=== PATIENT | male | born 1965 | race Caucasian/White ===

== ENCOUNTER 2021-12-19 07:52 | Day surgery (SDC) | payer OTHER ==
[~2021-12-19] VITALS: Ht 180.3 cm; Wt 81.9 kg
[~2021-12-19 07:52] MED LIST: Antivert25 MG PO; DIPH50 PO; ESOM20 PO; LAMO100 PO; MONT5TCH PO; NASACORT10.8 ML; OMEP40CA12 PO; PSEU120ER PO
[2021-12-19] MEDS ORDERED: ZYRTEC10 M2 (08:23)
== END 2021-12-19 11:11 | disposition home or self-care (01) ==
LOC: ORSCSDS 07:52
PROVIDERS: Student in an Organized Health Care Education/Training Program
PROC: 0DBK8ZX Excision of Ascending Colon, Via Natural or Artificial Opening Endoscopic, Diagnostic (ICD-10-PCS; principal; 2021-12-19 09:00)
PROC: 0DB58ZX Excision of Esophagus, Via Natural or Artificial Opening Endoscopic, Diagnostic (ICD-10-PCS; principal; 2021-12-19 09:00)
PROC: 0DBM8ZX Excision of Descending Colon, Via Natural or Artificial Opening Endoscopic, Diagnostic (ICD-10-PCS; principal; 2021-12-19 09:00)
PROC: 0DBL8ZX Excision of Transverse Colon, Via Natural or Artificial Opening Endoscopic, Diagnostic (ICD-10-PCS; principal; 2021-12-19 09:00)
DX: K21.9 Gastro-esophageal reflux disease without esophagitis (principal); Z12.11 Encounter for screening for malignant neoplasm of colon; K22.70 Barrett's esophagus without dysplasia; D12.2 Benign neoplasm of ascending colon; D12.3 Benign neoplasm of transverse colon; K44.9 Diaphragmatic hernia without obstruction or gangrene; K64.8 Other hemorrhoids
CPT/HCPCS: 88305; J2250; J2704

== ENCOUNTER → 2023-01-01 | Outpatient (CLI) | payer OTHER ==
[~2023-01-01] MED LIST changes: +ZYRTEC10 M2
[2023-01-01 18:56] LABS: BASOPHILS ABSOLUTE AUTO 0.05 K/mm3 (0.00-0.23); BASOPHILS PERCENT AUTO 1 % (0-2); EOSINOPHILS ABSOLUTE AUTO 0.11 K/mm3 (0.00-0.68); EOSINOPHILS PERCENT AUTO 2 % (0-6); Hematocrit 42.6 % (37.0-53.0); Hemoglobin 14.1 g/dL (13.5-17.5); IMMATURE GRAN ABSOLUTE AUTO 0.02 K/mm3 (0.00-0.10); IMMATURE GRAN PERCENT AUTO 0 % (0-1); LYMPHOCYTES ABSOLUTE AUTO 2.65 K/mm3 (0.84-5.20); LYMPHOCYTES PERCENT AUTO 42 % (21-46); MONOCYTES ABSOLUTE AUTO 0.75 K/mm3 (0.16-1.47); MONOCYTES PERCENT AUTO 12 % (4-13); Mean Corpuscular HGB 30.2 pg (26.0-34.0); Mean Corpuscular HGB Conc 33.1 g/dL (31.5-36.5); Mean Corpuscular Volume 91 fL (80-100); Mean Platelet Volume 9.7 fL (9.1-12.4); NEUTROPHILS ABSOLUTE AUTO 2.73 K/mm3 (1.96-9.15); NEUTROPHILS PERCENT AUTO 43 % (41-73); Platelet Count 225 K/mm3 (150-400); RDW Coefficient Variation 12.7 % (11.7-14.2); RDW Standard Deviation 41.6 fL (35.1-46.3); Red Blood Cell Count 4.67 M/mm3 (4.30-5.90); White Blood Cell Count 6.31 K/mm3 (4.00-11.30)
[2023-01-01 19:13] LABS: Albumin, Blood 3.9 g/dL (3.4-5.0); Albumin/Globulin Ratio 1.1 (0.8-1.8); Bilirubin, Total 0.5 mg/dL (0.1-1.0); Bun/Creatinine Ratio 8.6 (12.0-20.0); Calcium, Blood 8.6 mg/dL (8.5-10.1); Creatinine, Blood 1.28 mg/dL (0.60-1.20); Globulin, Blood 3.5 g/dL (2.2-4.0); Magnesium, Blood 2.1 mg/dL (1.6-2.4); Potassium, Blood 4.2 mmol/L (3.5-5.5); Thyroid Stimulating Hormone 1.933 uIU/mL (0.360-4.800); Total Protein, Blood 7.4 g/dL (6.4-8.2)
== END | disposition home or self-care (01) ==
LOC: LAB SHORT 18:51
PROVIDERS: Physician Assistant
DX: R53.83 Other fatigue (principal)
CPT/HCPCS: 80053; 83735; 84443; 85025

== ENCOUNTER 2023-02-18 09:57 | Inpatient (IN) | payer OTHER ==
[~2023-02-18] VITALS: Ht 182.9 cm; Wt 86.2 kg
[2023-02-18 10:38] LABS: BASOPHILS ABSOLUTE AUTO 0.05 K/mm3 (0.00-0.23); BASOPHILS PERCENT AUTO 1 % (0-2); EOSINOPHILS ABSOLUTE AUTO 0.04 K/mm3 (0.00-0.68); EOSINOPHILS PERCENT AUTO 1 % (0-6); Hematocrit 43.9 % (37.0-53.0); Hemoglobin 14.6 g/dL (13.5-17.5); IMMATURE GRAN ABSOLUTE AUTO 0.01 K/mm3 (0.00-0.10); IMMATURE GRAN PERCENT AUTO 0 % (0-1); LYMPHOCYTES ABSOLUTE AUTO 1.68 K/mm3 (0.84-5.20); LYMPHOCYTES PERCENT AUTO 34 % (21-46); MONOCYTES ABSOLUTE AUTO 0.39 K/mm3 (0.16-1.47); MONOCYTES PERCENT AUTO 8 % (4-13); Mean Corpuscular HGB Conc 33.3 g/dL (31.5-36.5); Mean Corpuscular Volume 90 fL (80-100); Mean Platelet Volume 9.8 fL (9.1-12.4); NEUTROPHILS ABSOLUTE AUTO 2.79 K/mm3 (1.96-9.15); NEUTROPHILS PERCENT AUTO 56 % (41-73); Platelet Count 234 K/mm3 (150-400); RDW Coefficient Variation 12.1 % (11.7-14.2); RDW Standard Deviation 39.9 fL (35.1-46.3); Red Blood Cell Count 4.86 M/mm3 (4.30-5.90); White Blood Cell Count 4.96 K/mm3 (4.00-11.30)
[2023-02-18] MEDS ORDERED: BENADRYL25 MG PO (10:47)
[2023-02-18 10:54] LABS: Albumin, Blood 3.9 g/dL (3.4-5.0); Albumin/Globulin Ratio 1.1 (0.8-1.8); Bilirubin, Total 0.3 mg/dL (0.1-1.0); Bun/Creatinine Ratio 9.3 (12.0-20.0); Calcium, Blood 8.5 mg/dL (8.5-10.1); Creatinine, Blood 1.07 mg/dL (0.60-1.20); Globulin, Blood 3.5 g/dL (2.2-4.0); Potassium, Blood 4.1 mmol/L (3.5-5.5); Total Protein, Blood 7.4 g/dL (6.4-8.2)
[2023-02-18 15:43] VITALS: BP 175/104
[2023-02-18 16:00] VITALS: BP 160/90
[2023-02-18] MEDS ORDERED: ESOM20 PO (16:29)
--- NOTE | 2023-02-18 17:42 | NUR ---
BEDSIDE SWALLOW EVAL DONE- PT WAS ABLE TO DRINK COLD WATER WITH A STRAW WITH NO EVIDENCE OF DYSPHASIA, WELL EATING PUDDING, APPLESAUCE AMD ARMINDA CRACKERS IN PUDDING. ADVANCED DIET PER MD ORDER.
--- NOTE | 2023-02-18 18:29 | NUR ---
ASSISTED PT TO THE RESTROOM, PT DECLINED USE OF GAITBELT DESPITE STAFF SAFETY CONCERNS. AMBULATED WITH PT FROM BED TO RESTROOM, STAND BY ASSIST. PT IS WOBBLY ON HIS FEET. 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 USE OF CALL LIGHT TO CALL STAFF FOR ASSISTANCE WAS ADVISED TO PT.
--- NOTE | 2023-02-18 19:32 | NUR ---
SHIFT SUMMARY- PT ADMITTED THROUGH THE ED FOR NEW ONSET CVA. PT HAS ONLY GROSS MOTOR CONTROL IN THE RIGHT ARM. BEDSIDE SWALLOW EVAL WAS PERFORMED BY THIS RN, AND THE PT PASSED ABLE TO CONSUME THIN LIQUIDS AND MIXED CONSISTENCIES WITHOUT DIFFICULTY. PT HAS DENIED ANY PAIN AT THIS TIME. HE HAS DECLINED TO USE THE GAIT BELT WHEN AMBULATING TO THE BATHROOM. IT WAS EXPLAINED TO HIM THAT THE GAIT BELT IS FOR STAFF TO USE IN AN EMERGENCY. THIS WAS ALL PASSED ON TO NIGHT RN IN BEDSIDE REPORT.
[2023-02-18 19:34] VITALS: BP 155/92
[2023-02-19 04:07] VITALS: BP 160/108
[2023-02-19 05:41] LABS: Hemoglobin 14.8 g/dL (13.5-17.5); Mean Corpuscular HGB 30.3 pg (26.0-34.0); Mean Corpuscular HGB Conc 33.6 g/dL (31.5-36.5); Mean Corpuscular Volume 90 fL (80-100); Mean Platelet Volume 10.1 fL (9.1-12.4); Platelet Count 236 K/mm3 (150-400); RDW Coefficient Variation 12.4 % (11.7-14.2); RDW Standard Deviation 40.8 fL (35.1-46.3); Red Blood Cell Count 4.88 M/mm3 (4.30-5.90); White Blood Cell Count 6.73 K/mm3 (4.00-11.30)
[2023-02-19 06:12] LABS: Anion Gap 6 mmol/L (6-16); Blood Urea Nitrogen 8 mg/dL (8-24); Bun/Creatinine Ratio 7.8 (12.0-20.0); CHOL/HDL RATIO 3.9; CO2, Blood 25 mmol/L (21-32); Calcium, Blood 8.9 mg/dL (8.5-10.1); Chloride, Blood 107 mmol/L (98-108); Cholesterol 176 mg/dL (50-200); Creatinine, Blood 1.02 mg/dL (0.60-1.20); Glomerular Filtration Rate 87 (60-); Glucose, Blood 98 mg/dL (70-99); HDL Cholesterol 45 mg/dL (>39); LDL/HDL RATIO 2.3; Low Density Lipoprotein Chol 104 mg/dL (0-110); Potassium, Blood 3.8 mmol/L (3.5-5.5); Sodium, Blood 138 mmol/L (136-145); Triglycerides 133 mg/dL (30-160); Very Low Density Lipoprot Chol 26 mg/dL (6-32)
--- NOTE | 2023-02-19 06:24 | NUR ---
SHIFT SUMMARY PT SITTING UP IN BED DURING BEDSIDE REPORT- ASSISTED PT TO BR- PT HAS RIGHT SIDED DEFICET - PT REPORTED FEELING LIGHT HEADED SINCE SYMPTOMS BEGAN YESTERDAY- EDUCATED PT OF IMPORTANCE OF NOT MOVING FAST TO GET OUT OF BED AND NOT GETTING UP WITHOUT ASSISTANCE-PT CALLED APPROPRIATELY T/O NIGHT- EXPRESSED WANTING TO DISCUSS WITH OTHER TESTING SUCH MS AND SAMANTHA GEHRIG'S DISEASE- WILL PASS ON WANTING TO DISCUSS WITH - PT SLEPT MOST OF THE NIGHT- NO SWALLOW ISSUES- NO CHANGES FROM BEGINNING OF SHIFT NEURO ASSESSMENT- BED LOW POSITION, CALL LIGHT WITHIN REACH
[2023-02-19 09:53] VITALS: BP 144/86
[2023-02-19 14:42] VITALS: BP 139/101
--- NOTE | 2023-02-19 17:12 | NUR ---
SHIFT SUMMARY IS A&O X 4. VSS. NO ACUTE CHANGES THIS SHIFT. APPETITE IS GOOD. PT UP TO RESTROOM W/STDBY ASSIST. SLIGHT R ARM WEAKNESS. AT BEDSIDE MAJORITY OF SHIFT, HAS NOW GONE HOME. PT IS PLEASANT & COOPERATIVE WITH ALL CARE. PHYS THERAPY ATEMPTED TO WORK WITH PT TODAY BUT HAD CONTINUED UNEXPECTED BARRIERS TO GAIN ACCESS TO PT. (SEE PHYS THERAPY NOTES). PHYS THERAPY WILL TRY AGAIN TOMORROW. CALL LIGHT IS WITHIN REACH, PT IS ABLE TO MAKE NEEDS KNOWN. BED IN LOW POSITION.
[2023-02-19 19:52] VITALS: BP 148/92
--- NOTE | 2023-02-20 06:59 | NUR ---
Shift Summary Pt states he is feeling stronger in his affected (R) side but still has some weakness. Pupil reflexes brisk and equal on both sides. No facial droop. No c/o pain or nausea. VSS. AOx4, independent in room.
[2023-02-20 08:41] VITALS: BP 149/95
--- NOTE | 2023-02-20 10:36 | NUR ---
AM ASSESSMENT MALDONADO WITH THE STUDENT RN ANA'S AM ASSESSMENT AND DOCUMENTATION ON THIS PATIENT
[2023-02-20 15:10] VITALS: BP 148/88
--- NOTE | 2023-02-20 17:10 | NUR ---
JANELLE IS ALERT AND ORIENTED X4, PLEASANT AND COOPERATIVE WITH CARE. HE A VERY UNEVENTFUL SHIFT, HIS RIGHT SIDE FEELS DOESN'T SEEM TO BE WEAK AND THE PT STATES THAT IT IS FEELING STRONGER. PT'S WAS AT BEDSIDE THIS MORNING, AND HIS MOTHER IN [place] VISITED THIS AFTERNOON. HE HAS NOT COMPLAINTS OF PAIN AND IS AMBULATING WELL.
--- NOTE | 2023-02-20 17:31 | NUR ---
PT IS A/OX4, PLEASANT AND COOPERATIVE, THE PT IS UP IND IN HIS ROOM. THE PT APPEARS TO BE BREATHING EASILY ON RA AT THIS TIME. PT DENIED ANY PAIN, N/V, SOB T/O THE DAY. DR MEDINA SPOKE TO THE PTS TODAY PER HER REQUEST. PT WAS UP AND AMBULATED I THE [facility] TODAY WITH THE PHYSICAL THERAPIST. CALL LIGHT IN REACH. WILL CONTINUE TO MONITOR AND ASSESS FOR CHANGES
[2023-02-20 19:39] VITALS: BP 150/88
[2023-02-20 23:41] VITALS: BP 137/89
[2023-02-21 05:19] VITALS: BP 135/90
--- NOTE | 2023-02-21 07:27 | NUR ---
ASSUMED CARE: PT RESTING QUIETLY IN BED. NSR ON TELE IN 70S AT THIS TIME. DENIES NEEDS OR CONCERNS AT THIS TIME.
--- NOTE | 2023-02-21 07:28 | NUR ---
Shift Summary Pt states he continues to feel stronger on his R side. Slept well t/o the night. 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 AOX4, VSS.
[2023-02-21 07:46] VITALS: BP 131/90
[2023-02-21] MEDS ORDERED: ASPI81CH PO (13:29)
[2023-02-21] MEDS ORDERED: ATOR80 PO (13:29)
[2023-02-21] MEDS ORDERED: LORA10ER PO (13:30)
[2023-02-21] MEDS ORDERED: Coreg6.25 MG PO (13:30)
[2023-02-21] MEDS ORDERED: CLOP75 PO (13:30)
--- NOTE | 2023-02-21 14:20 | NUR ---
DISCHARGE: PT'S IV DC'D WNL. INSTRUCTIONS GIVEN REGARDING FOLLOW UP APPOINTMENTS AND MEDICATIONS. ADVISED TO CALL DR'S OFFICE NEXT WEEK IF HE HAS NOT HEARD ANYTHING FROM HIS PCP BY THEN DUE TO OFFICE STATING THEY HAVE TO REASSIGN HIM TO A NEW PROVIDER. ADVISED REGARDING PRECAUTIONS WITH BLOOD THINNERS AND WHEN TO SEEK MEDICAL ATTENTION. ESCORTED OUT VIA WHEEL CHAIR BY HOSPITAL STAFF. NO FURTHER NEEDS OR CONCERNS UPON DISCHARGE.
== END 2023-02-21 14:20 | disposition home or self-care (01) | DRG 65 ==
LOC: ER 09:57 → MEDS 09:58
PROVIDERS: Student in an Organized Health Care Education/Training Program; ADMIT Internal Medicine
DX: I63.81 Other cerebral infarction due to occlusion or stenosis of small artery (principal); G81.91 Hemiplegia, unspecified affecting right dominant side; R29.703 NIHSS score 3; E78.5 Hyperlipidemia, unspecified; I51.3 Intracardiac thrombosis, not elsewhere classified; K21.9 Gastro-esophageal reflux disease without esophagitis; J30.2 Other seasonal allergic rhinitis; I10 Essential (primary) hypertension; K29.70 Gastritis, unspecified, without bleeding; F41.9 Anxiety disorder, unspecified; G93.32 Myalgic encephalomyelitis/chronic fatigue syndrome; Z90.49 Acquired absence of other specified parts of digestive tract; Z98.890 Other specified postprocedural states; Z88.0 Allergy status to penicillin; Z79.899 Other long term (current) drug therapy
CPT/HCPCS: 36415; 70450; 70496; 70498; 70551; 80048; 80053; 80061; 82947; 83036; 85025; 85027; 86850; 86900; 86901; 93005; 93010; 93306; 96372; 97112; 97116; 97161; 97165; 97530; 99285-25; A9270; G0378; J1650; Q9967

== ENCOUNTER 2023-08-23 07:44 | Day surgery (SDC) | payer OTHER ==
[~2023-08-23] VITALS: Ht 177.8 cm; Wt 86.4 kg
[2023-08-23] VITALS (15 sets, daily range): BP systolic 93–134; BP diastolic 68–86
[~2023-08-23 07:44] MED LIST changes: +ASPI81CH PO; +ATOR80 PO; +BENADRYL25 MG PO; +CLOP75 PO; +Coreg6.25 MG PO; +LORA10ER PO
[2023-08-23] MEDS ORDERED: ELIQUIS5 M2 PO (08:00)
--- NOTE | 2023-08-23 08:25 | NUR ---
Ambulatory in Day Surgery. History, Chart, Medications and Allergies reviewed before start of procedure. Lungs clear T/O to Auscultation. Patient confirms NPO status and agrees with scheduled surgery. Pre-Op teaching done. Pt verbalizes understanding. Patient States Post-Procedure ride home has been arranged.
--- NOTE | 2023-08-23 08:33 | NUR ---
08/23/23 0833 Jodi Patel HISTORY, CHART, MEDICATIONS AND ALLERGIES REVIEWED BEFORE START OF PROCEDURE. PATIENT CONFIRMS NPO STATUS AND AGREES WITH SCHEDULED PROCEDURE. 3-LEAD EKG REVIEWED WITH PHYSICIAN PRIOR TO START OF PROCEDURE. MONITOR INTACT WITH CONTINUOUS PULSE OXIMETRY,CAPNOGRAPHY, 3-LEAD EKG, INTERMITTENT BP. SUPPLEMENTAL O2 TO BE TITRATED THROUGHOUT PROCEDURE TO MAINTAIN O2 SATURATION ABOVE 90%. PATIENT DETERMINED TO BE ASA APPROPRIATE FOR PROPOFOL SEDATION PRIOR TO START OF PROCEDURE BY .
--- NOTE | 2023-08-23 09:33 | NUR ---
Discharge instructions reviewed with patient. Patient verbalizes understanding. Copy given to patient to take home. Patient States Post-Procedure ride home has been arranged. Discharged via wheelchair to private car for ride home.
== END 2023-08-23 09:33 | disposition home or self-care (01) ==
LOC: ORSCMMR 07:44 → ORD 08:30 → ORSCMMR 08:30
PROVIDERS: Internal Medicine Gastroenterology
PROC: 0DJD8ZZ Inspection of Lower Intestinal Tract, Via Natural or Artificial Opening Endoscopic (ICD-10-PCS; principal; 2023-08-23 08:30)
DX: Z86.010 Personal history of colon polyps (principal); K22.70 Barrett's esophagus without dysplasia; I10 Essential (primary) hypertension; Z79.82 Long term (current) use of aspirin; Z79.01 Long term (current) use of anticoagulants; Z79.899 Other long term (current) drug therapy
CPT/HCPCS: J2704; J7120

== ENCOUNTER 2023-10-08 04:41 | Emergency (ER) | payer BC ==
[~2023-10-08] VITALS: Ht 182.9 cm; Wt 87.5 kg
[~2023-10-08 04:41] MED LIST changes: +ELIQUIS5 M2 PO
[2023-10-08] MEDS ORDERED: LORA10ER PO (08:11)
[2023-10-08] MEDS ORDERED: LOSA50 PO (08:12)
[2023-10-08] MEDS ORDERED: CELEXA40 M1 PO (08:12)
[2023-10-08] MEDS ORDERED: ESOM20 PO (08:12)
[2023-10-08 08:45] VITALS: BP 149/87
== END 2023-10-08 08:45 | disposition home or self-care (01) ==
LOC: ER 04:41
DX: H92.01 Otalgia, right ear (principal); Z88.0 Allergy status to penicillin; Z79.899 Other long term (current) drug therapy
CPT/HCPCS: 99282

== ENCOUNTER 2023-11-09 19:21 | Emergency (ER) | payer BC, OTHER ==
[~2023-11-09] VITALS: Ht 182.9 cm; Wt 86.2 kg
[2023-11-09 20:03] LABS: BASOPHILS ABSOLUTE AUTO 0.06 K/mm3 (0.00-0.23); BASOPHILS PERCENT AUTO 1 % (0-2); EOSINOPHILS ABSOLUTE AUTO 0.22 K/mm3 (0.00-0.68); EOSINOPHILS PERCENT AUTO 3 % (0-6); Hematocrit 41.8 % (37.0-53.0); IMMATURE GRAN ABSOLUTE AUTO 0.02 K/mm3 (0.00-0.10); IMMATURE GRAN PERCENT AUTO 0 % (0-1); LYMPHOCYTES ABSOLUTE AUTO 3.44 K/mm3 (0.84-5.20); LYMPHOCYTES PERCENT AUTO 44 % (21-46); MONOCYTES PERCENT AUTO 9 % (4-13); Mean Corpuscular HGB Conc 33.5 g/dL (31.5-36.5); Mean Corpuscular Volume 93 fL (80-100); Mean Platelet Volume 9.3 fL (9.1-12.4); NEUTROPHILS ABSOLUTE AUTO 3.33 K/mm3 (1.96-9.15); NEUTROPHILS PERCENT AUTO 43 % (41-73); Platelet Count 205 K/mm3 (150-400); RDW Coefficient Variation 12.7 % (11.7-14.2); RDW Standard Deviation 42.9 fL (35.1-46.3); Red Blood Cell Count 4.52 M/mm3 (4.30-5.90); White Blood Cell Count 7.77 K/mm3 (4.00-11.30)
[2023-11-09 20:28] LABS: Magnesium, Blood 2.4 mg/dL (1.6-2.4)
[2023-11-09 20:37] LABS: Alanine Aminotransfer (ALT/SGP 34 U/L (12-78); Albumin, Blood 3.6 g/dL (3.4-5.0); Alk Phos 85 U/L (50-136); Anion Gap Unable to Calculate mmol/L (6-16); Aspartate Aminotrans (AST/SGOT 18 U/L (12-37); Bilirubin, Total 0.3 mg/dL (0.1-1.0); Blood Urea Nitrogen 11 mg/dL (8-24); Bun/Creatinine Ratio 9.8 (12.0-20.0); CO2, Blood 32 mmol/L (21-32); Calcium, Blood 9.4 mg/dL (8.5-10.1); Chloride, Blood 104 mmol/L (98-108); Creatinine, Blood 1.12 mg/dL (0.60-1.20); Globulin, Blood 3.7 g/dL (2.2-4.0); Glomerular Filtration Rate 77 (60-); Glucose, Blood 87 mg/dL (70-99); Potassium, Blood 4.1 mmol/L (3.5-5.5); Sodium, Blood 135 mmol/L (136-145); Total Protein, Blood 7.3 g/dL (6.4-8.2)
[2023-11-09 22:30] VITALS: BP 145/92
== END 2023-11-09 23:20 | disposition home or self-care (01) ==
LOC: ER 19:21
PROVIDERS: Physician Assistant
DX: R07.89 Other chest pain (principal); I10 Essential (primary) hypertension; Z86.73 Personal history of transient ischemic attack (TIA), and cerebral infarction without residual deficits; Z79.01 Long term (current) use of anticoagulants; Z79.899 Other long term (current) drug therapy; Z88.0 Allergy status to penicillin
CPT/HCPCS: 71046; 80053; 83735; 84484; 85025; 93005; 93010; 99284-25

== ENCOUNTER → 2023-11-09 | Outpatient (CLI) | payer BC ==
[~2023-11-09] MED LIST changes: +CELEXA40 M1 PO; +LOSA50 PO
[2023-11-09 19:16] LABS: BASOPHILS ABSOLUTE AUTO 0.06 K/mm3 (0.00-0.23); BASOPHILS PERCENT AUTO 1 % (0-2); EOSINOPHILS ABSOLUTE AUTO 0.23 K/mm3 (0.00-0.68); EOSINOPHILS PERCENT AUTO 3 % (0-6); Hematocrit 44.3 % (37.0-53.0); Hemoglobin 14.7 g/dL (13.5-17.5); IMMATURE GRAN ABSOLUTE AUTO 0.04 K/mm3 (0.00-0.10); IMMATURE GRAN PERCENT AUTO 1 % (0-1); LYMPHOCYTES ABSOLUTE AUTO 3.36 K/mm3 (0.84-5.20); LYMPHOCYTES PERCENT AUTO 42 % (21-46); MONOCYTES ABSOLUTE AUTO 0.77 K/mm3 (0.16-1.47); MONOCYTES PERCENT AUTO 10 % (4-13); Mean Corpuscular HGB 30.8 pg (26.0-34.0); Mean Corpuscular HGB Conc 33.2 g/dL (31.5-36.5); Mean Corpuscular Volume 93 fL (80-100); Mean Platelet Volume 9.5 fL (9.1-12.4); NEUTROPHILS ABSOLUTE AUTO 3.61 K/mm3 (1.96-9.15); NEUTROPHILS PERCENT AUTO 45 % (41-73); Platelet Count 223 K/mm3 (150-400); RDW Coefficient Variation 12.8 % (11.7-14.2); RDW Standard Deviation 43.4 fL (35.1-46.3); Red Blood Cell Count 4.77 M/mm3 (4.30-5.90); White Blood Cell Count 8.07 K/mm3 (4.00-11.30)
[2023-11-09 20:02] LABS: Albumin, Blood 3.9 g/dL (3.4-5.0); Bilirubin, Total 0.3 mg/dL (0.1-1.0); Bun/Creatinine Ratio 10.1 (12.0-20.0); Calcium, Blood 9.4 mg/dL (8.5-10.1); Creatinine, Blood 1.09 mg/dL (0.60-1.20); Globulin, Blood 4.1 g/dL (2.2-4.0); Potassium, Blood 3.7 mmol/L (3.5-5.5)
== END | disposition home or self-care (01) ==
LOC: LAB SHORT 19:11
PROVIDERS: Family Medicine
DX: R07.9 Chest pain, unspecified (principal)
CPT/HCPCS: 80053; 84484; 85025; 85379

== ENCOUNTER → 2024-07-11 | Outpatient (CLI) | payer BC ==
[2024-07-11 12:33] LABS: BASOPHILS ABSOLUTE AUTO 0.05 K/mm3 (0.00-0.23); BASOPHILS PERCENT AUTO 1 % (0-2); EOSINOPHILS ABSOLUTE AUTO 0.11 K/mm3 (0.00-0.68); EOSINOPHILS PERCENT AUTO 2 % (0-6); Hemoglobin 14.8 g/dL (13.5-17.5); IMMATURE GRAN ABSOLUTE AUTO 0.03 K/mm3 (0.00-0.10); IMMATURE GRAN PERCENT AUTO 1 % (0-1); LYMPHOCYTES ABSOLUTE AUTO 2.21 K/mm3 (0.84-5.20); LYMPHOCYTES PERCENT AUTO 33 % (21-46); MONOCYTES PERCENT AUTO 12 % (4-13); Mean Corpuscular HGB 32.7 pg (26.0-34.0); Mean Corpuscular HGB Conc 35.2 g/dL (31.5-36.5); Mean Corpuscular Volume 93 fL (80-100); Mean Platelet Volume 9.5 fL (9.1-12.4); NEUTROPHILS ABSOLUTE AUTO 3.42 K/mm3 (1.96-9.15); NEUTROPHILS PERCENT AUTO 52 % (41-73); Platelet Count 227 K/mm3 (150-400); RDW Coefficient Variation 12.8 % (11.7-14.2); RDW Standard Deviation 43.5 fL (35.1-46.3); Red Blood Cell Count 4.52 M/mm3 (4.30-5.90); White Blood Cell Count 6.62 K/mm3 (4.00-11.30)
[2024-07-11 12:44] LABS: Albumin, Blood 3.7 g/dL (3.4-5.0); Albumin/Globulin Ratio 0.9 (0.8-1.8); Bilirubin, Total 0.7 mg/dL (0.1-1.0); Bun/Creatinine Ratio 10.2 (12.0-20.0); Calcium, Blood 8.8 mg/dL (8.5-10.1); Creatinine, Blood 1.08 mg/dL (0.60-1.20); Globulin, Blood 3.9 g/dL (2.2-4.0); Potassium, Blood 4.2 mmol/L (3.5-5.5); Total Protein, Blood 7.6 g/dL (6.4-8.2)
[2024-07-11 13:35] LABS: International Normalized Ratio 1.04; Prothrombin Time Results 11.1 Sec (9.7-11.5)
== END | disposition home or self-care (01) ==
LOC: LAB 12:28 → LAB SHORT 12:28
PROVIDERS: Emergency Medicine
DX: R10.11 Right upper quadrant pain (principal)
CPT/HCPCS: 80053; 83690; 85025; 85610

== ENCOUNTER 2024-10-09 09:13 | Day surgery (SDC) | payer OTHER ==
[2024-10-09] VITALS (17 sets, daily range): BP systolic 115–163; BP diastolic 81–109
[~2024-10-09] VITALS: Ht 182.9 cm; Wt 92.4 kg
[~2024-10-09 09:13] MED LIST changes: +Lactated Ringer's 1,000 ML IV SCH
--- NOTE | 2024-10-09 09:47 | NUR ---
Ambulatory in Day SurgeryPre-Op teaching done. Pt verbalizes understanding. History, Chart, Medications and Allergies reviewed before start of procedure.Patient confirms NPO status and agrees with scheduled surgery. Patient States Post-Procedure ride home has been arranged.
[2024-10-09] MEDS ORDERED: propofoL 40 ML IV ONE (09:57)
--- NOTE | 2024-10-09 10:07 | NUR ---
10/09/24 Bebe Munoz CONFIRMED AND REVIEWED H&P, MEDCICATIONS, ALLERGIES, MEDICAL HISTORY, RESPIRATORY HISTORY, VITAL SIGNS, 3-LEAD EKG, CONSENTS, AND PHYSICIAN ORDERS. PATIENT CONFIRMS NPO STATUS AND AGREES WITH SCHEDULED PROCEDURE. MONITOR INTACT WITH CONTINUOUS PULSE OXIMETRY, CAPNOGRAPHY, 3-LEAD EKG, INTERMITTENT BP. SUPPLEMENTAL O2 TO BE TITRATED THROUGHOUT PROCEDURE TO MAINTAIN O2 SATURATION ABOVE 90%. PATIENT DETERMINED TO BE ASA APPROPRIATE FOR PROPOFOL SEDATION PRIOR TO START OF PROCEDURE BY DR. WILLIAMSON
--- NOTE | 2024-10-09 10:24 | NUR ---
PT VERY PLEASANT BUT LETHARGIC AND FLAT. STATES THE PREP IS REALLY ROUGH ON HIM. UNABLE TO WAKE UP AND TAKE FINAL QUART OF PREP AT 0300. PT STATES HE WAS VERY DIZZY AND OCCASIONALLY NAUSEATED YESTERDAY. UNSURE IF HE DRANK ENOUGH FLUIDS W/ PREP. PT ALSO HAS H/O STROKE AND HAS NOT TAKEN HIS BP MEDS FOR 48 HOURS B/C "I'VE BEEN OUT OF IT"
== END 2024-10-09 11:35 | disposition home or self-care (01) ==
LOC: ORSCMMR 09:13 → ORD 10:00 → ORSCSDS 10:00 → ORSCMMR 10:00
PROVIDERS: Internal Medicine Gastroenterology
PROC: 0DBK8ZX Excision of Ascending Colon, Via Natural or Artificial Opening Endoscopic, Diagnostic (ICD-10-PCS; principal; 2024-10-09 10:00)
DX: K62.5 Hemorrhage of anus and rectum (principal); Z86.0101 Personal history of adenomatous and serrated colon polyps; K63.5 Polyp of colon; Z90.49 Acquired absence of other specified parts of digestive tract; I10 Essential (primary) hypertension; E78.00 Pure hypercholesterolemia, unspecified; F32.A Depression, unspecified; Z79.01 Long term (current) use of anticoagulants; Z79.899 Other long term (current) drug therapy
CPT/HCPCS: 88305; J2704; J7120